=== PATIENT | male | born 1930 | race Caucasian/White ===

== ENCOUNTER → 2016-07-09 | Outpatient (CLI) | payer MEDICARE, BC ==
[~2016-07-09] MED LIST: ATOR10TA9 PO; CARV-39 PO; DONE5TAB7 PO; FAMO20TA7 PO; FINA5TAB4 PO; FLUT9.9S NS; GABA100C8 PO; HYDR-879 PO; LOSA50TA6 PO; METF500T4 PO; METH750T2 PO; TAMS0.4C2 PO; TIZA4CAP2 PO; muscle relaxer PO
== END | disposition home or self-care (01) ==
LOC: STAR 13:52
PROVIDERS: ATTEND Neurological Surgery
DX: Z01.818 Encounter for other preprocedural examination (principal); M51.36 Other intervertebral disc degeneration, lumbar region
CPT/HCPCS: 36415; 71020; 85610; 85730

== ENCOUNTER 2016-07-16 09:45 | Inpatient (IN) | payer MEDICARE, BC ==
[~2016-07-16] VITALS: Ht 175.3 cm; Wt 71.0 kg
[~2016-07-16 09:45] MED LIST changes: +BACITRACIN 50,000 UNIT ONE; +BUPIVACAINE/PF 0.5% ONE; +BUPIVACAINE/PF-EPI 0.25% 1:200K ONE; -METH750T2 PO; +THROMBIN 5,000 UNIT VIAL TP ONE; +VANCOMYCIN 1,000 MG ONE
[2016-07-16] MEDS ORDERED: LACTATED RINGERS 1,000 ML IV SCH (10:32)
[2016-07-16 10:33] VITALS: BP 220/92
[2016-07-16] MEDS ORDERED: FENTANYL PF 250 MCG/5ML ONE (10:37)
[2016-07-16] MEDS ORDERED: MIDAZOLAM 1 MG/ML, 2ML ONE (10:37)
[2016-07-16] MEDS ORDERED: METH750T2 PO (10:43)
[2016-07-16] MEDS ORDERED: LOSARTAN 50MG TABLET PO ONE (11:00)
[2016-07-16] MEDS ORDERED: CARVEDILOL 25 MG TABLET PO ONE (11:00)
[2016-07-16] MEDS ORDERED: ONDANSETRON 2MG/ML, 2ML ONE (12:27)
[2016-07-16] MEDS ORDERED: SUCCINYLCHOLINE 20 MG/ML, 10ML ONE (12:27)
[2016-07-16] MEDS ORDERED: DEXAMETHASONE 4 MG/ML, 1ML ONE (12:27)
[2016-07-16] MEDS ORDERED: ROCURONIUM 10 MG/ML ONE (12:27)
[2016-07-16] MEDS ORDERED: PROPOFOL 10 MG/ML, 20ML ONE (12:27)
[2016-07-16] MEDS ORDERED: CEFAZOLIN 1,000 MG ONE (12:27)
[2016-07-16] MEDS ORDERED: hydrALAzine 20 MG/ML, 1ML IV PRN (13:00)
[2016-07-16] MEDS ORDERED: OXYcodone 5 MG/5 ML ORAL.SOL UDC PO PRN (13:00)
[2016-07-16] MEDS ORDERED: ONDANSETRON 2MG/ML, 2ML IVPush PRN (13:00)
[2016-07-16] MEDS ORDERED: HYDROmorphone 1 MG/ML, 1ML IV PRN (13:00)
[2016-07-16] MEDS ORDERED: METOCLOPRAMIDE 5 MG/ML, 2ML IV PRN (13:00)
[2016-07-16] MEDS ORDERED: ACETAMINOPHEN 325 MG TABLET PO PRN (13:00)
[2016-07-16] MEDS: LABETALOL 5MG/ML, 20ML IV PRN ×7 (13:55→22:36)
[2016-07-16] MEDS ORDERED: ACETAMINOPHEN 650 MG/20.3 ML UDC ONE (14:10)
[2016-07-16] MEDS ORDERED: ACETAMINOPHEN 325 MG TABLET ONE (14:10)
[2016-07-16] MEDS ORDERED: OXYcodone 5 MG/5 ML ORAL.SOL UDC ONE (14:10)
[2016-07-16] MEDS ORDERED: FENTANYL PF 100 MCG/2ML ONE (14:10)
[2016-07-16] MEDS: FENTANYL PF 100 MCG/2ML IV PRN ×2 (14:15→15:24)
[2016-07-16] MEDS ORDERED: hydrALAzine 20 MG/ML, 1ML ONE (14:58)
[2016-07-16 16:05] VITALS: BP 141/67
[2016-07-16] MEDS ORDERED: DIPHENHYDRAMINE 50 MG CAPSULE PO PRN (16:30)
[2016-07-16] MEDS ORDERED: CYCLOBENZAPRINE 10 MG TABLET PO PRN (16:30)
[2016-07-16] MEDS ORDERED: MAGNESIUM HYDROXIDE 8%, 30ML UDC PO PRN (16:30)
[2016-07-16] MEDS ORDERED: OXYcodone/APAP 5/325MG TABLET PO PRN (16:30)
[2016-07-16] MEDS ORDERED: BISACODYL 10 MG SUPP PR PRN (16:30)
[2016-07-16] MEDS ORDERED: morphine SULFATE 10 MG/ML, 1ML IV PRN (16:30)
[2016-07-16] MEDS ORDERED: ONDANSETRON 2MG/ML, 2ML IV PRN (16:30)
[2016-07-16] MEDS ORDERED: TRAZODONE 50MG TABLET PO PRN (16:30)
[2016-07-16] MEDS ORDERED: PROMETHAZINE 25 MG/ML, 1ML IM PRN (16:30)
[2016-07-16] MEDS: NS + 20MEQ KCL 1,000 ML IV SCH (18:09)
[2016-07-16] MEDS: metFORMIN 500 MG TABLET PO SCH (18:09)
[2016-07-16] MEDS: CARVEDILOL 25 MG TABLET PO SCH (18:09)
[2016-07-16] MEDS: HYDROcodone/APAP 10/325 MG TABLET PO PRN (18:14)
[2016-07-16 19:56] VITALS: BP 144/74
[2016-07-16] MEDS ORDERED: DONEPEZIL 5 MG TABLET PO SCH (21:00)
[2016-07-16] MEDS ORDERED: ATORVASTATIN 10 MG TABLET PO SCH (21:00)
[2016-07-16] MEDS: CEFAZOLIN PMX 1GM/50ML 50 ML IVPB SCH (22:28)
[2016-07-16] MEDS: FAMOTIDINE 20 MG TABLET PO SCH (22:28)
[2016-07-16] MEDS: LOSARTAN 50MG TABLET PO SCH (22:29)
[2016-07-16] MEDS: INSULIN REGULAR 100 UNITS/ML, 3ML VIAL SQ-INSULIN SCH (23:05)
[2016-07-17 00:23] VITALS: BP 168/106
[2016-07-17] MEDS: HYDROcodone/APAP 10/325 MG TABLET PO PRN ×3 (00:50→14:16)
[2016-07-17 00:52] VITALS: BP 148/75
[2016-07-17] MEDS: NS + 20MEQ KCL 1,000 ML IV SCH ×2 (02:30→12:30)
[2016-07-17] MEDS: CEFAZOLIN PMX 1GM/50ML 50 ML IVPB SCH ×2 (04:46→11:39)
[2016-07-17] MEDS: CEPHALEXIN 500 MG CAPSULE PO SCH ×3 (04:52→15:27)
[2016-07-17 05:45] VITALS: BP 130/64
[2016-07-17] MEDS: CARVEDILOL 25 MG TABLET PO SCH (06:01)
[2016-07-17] MEDS: INSULIN REGULAR 100 UNITS/ML, 3ML VIAL SQ-INSULIN SCH ×2 (07:00→11:00)
[2016-07-17 07:58] VITALS: BP 144/66
[2016-07-17] MEDS ORDERED: TAMSULOSIN 0.4 MG CAP.ER.24H PO SCH (09:00)
[2016-07-17] MEDS ORDERED: SENNA/DOCUSATE TABLET PO SCH (09:00)
[2016-07-17] MEDS ORDERED: GABAPENTIN 100 MG CAPSULE PO SCH (09:00)
[2016-07-17] MEDS ORDERED: FINASTERIDE 5 MG TABLET PO SCH (09:00)
[2016-07-17] MEDS: FAMOTIDINE 20 MG TABLET PO SCH (09:29)
[2016-07-17] MEDS: metFORMIN 500 MG TABLET PO SCH (09:30)
[2016-07-17] MEDS: LOSARTAN 50MG TABLET PO SCH (09:30)
[2016-07-17 13:58] VITALS: BP 106/55
[2016-07-17] MEDS ORDERED: HYDR-3144 PO (15:55)
[2016-07-17] MEDS ORDERED: CEPH-368 PO (15:57)
== END 2016-07-17 16:15 | disposition home health service (06) | DRG 516 ==
LOC: OUT 09:45 → 4NOR 16:01 → OUT 16:12 → 4NOR 16:35 → DCLOUNGE 07-17 15:50
PROVIDERS: ADMIT Neurological Surgery; ATTEND Neurological Surgery
PROC: 01NB0ZZ Release Lumbar Nerve, Open Approach (ICD-10-PCS; principal; 2016-07-16 12:30)
DX: M48.06 Spinal stenosis, lumbar region (principal); K59.2 Neurogenic bowel, not elsewhere classified; M47.26 Other spondylosis with radiculopathy, lumbar region; I10 Essential (primary) hypertension; E11.65 Type 2 diabetes mellitus with hyperglycemia; I45.10 Unspecified right bundle-branch block; E78.2 Mixed hyperlipidemia; N31.9 Neuromuscular dysfunction of bladder, unspecified
CPT/HCPCS: 72100; 82962; C1729; J0690; J1100; J1815; J2250; J2405; J2704; J3010; J3370; J3480; J3490; J0330; J0360; J7120

== ENCOUNTER 2016-09-27 11:52 | Emergency (ER) | payer MEDICARE, BC ==
[~2016-09-27] VITALS: Ht 175.3 cm; Wt 72.0 kg
[~2016-09-27 11:52] MED LIST changes: -BACITRACIN 50,000 UNIT ONE; -BUPIVACAINE/PF 0.5% ONE; -BUPIVACAINE/PF-EPI 0.25% 1:200K ONE; +CEPH-368 PO; +GABA-826 PO; -GABA100C8 PO; +HYDR-3144 PO; +METH750T2 PO; -THROMBIN 5,000 UNIT VIAL TP ONE; -VANCOMYCIN 1,000 MG ONE
[2016-09-27 11:56] VITALS: BP 120/64
== END 2016-09-27 14:43 | disposition home or self-care (01) ==
LOC: ED 14:29
DX: Z00.00 Encounter for general adult medical examination without abnormal findings (principal); E11.9 Type 2 diabetes mellitus without complications; Z87.891 Personal history of nicotine dependence
CPT/HCPCS: 81001; 87086; 99284

== ENCOUNTER 2017-03-11 17:31 | Inpatient (IN) | payer MEDICARE, BC ==
[~2017-03-11] VITALS: Ht 175.3 cm; Wt 69.1 kg
[~2017-03-11 17:31] MED LIST changes: -HYDR-3144 PO; +HYDR-3245 PO
[2017-03-11] MEDS ORDERED: HYDROcodone/APAP 5/325 TABLET ONE (18:25)
[2017-03-11] MEDS ORDERED: HYDROcodone/APAP 5/325 TABLET PO ONE (18:30)
[2017-03-11 18:44] LABS: HEMATOCRIT 46.5 % (39.2-51.8); HEMOGLOBIN 15.6 g/dL (13.7-18.0); WHITE BLOOD COUNT 14.6 x10^3/uL (3.4-10)
[2017-03-11 18:55] LABS: PATH.CAST-FLAG NOT PRESENT; SPERM-FLAG NOT PRESENT; SRC-FLAG NOT PRESENT; XTAL-FLAG NOT PRESENT; YLC-FLAG NOT PRESENT
[2017-03-11 18:57] LABS: ASPARTATE AMINO TRANSFERASE 29 U/L (15-37); BLOOD UREA NITROGEN 20 mg/dL (7-18)
[2017-03-11] MEDS ORDERED: HYDROmorphone 1 MG/ML, 1ML ONE ×2 (20:45→21:56)
[2017-03-11] MEDS: HYDROmorphone 2 MG/ML, 1ML IVPush PRN ×2 (20:49→22:02)
[2017-03-11] MEDS ORDERED: DEXTROSE 4 GM TAB.CHEW PO PRN (21:00)
[2017-03-11] MEDS ORDERED: GLUCAGON 1 MG IM PRN (21:00)
[2017-03-11] MEDS ORDERED: ONDANSETRON 2MG/ML, 2ML IVPush PRN (21:00)
[2017-03-11] MEDS: DONEPEZIL 5 MG TABLET PO SCH ×2 (21:00→23:01)
[2017-03-11] MEDS: CARVEDILOL 25 MG TABLET PO SCH ×2 (21:00→23:02)
[2017-03-11] MEDS: ATORVASTATIN 10 MG TABLET PO SCH (21:00)
[2017-03-11] MEDS ORDERED: DEXTROSE 50%, 50ML SYRINGE IVPush PRN (21:00)
[2017-03-11] MEDS: FAMOTIDINE 20 MG TABLET PO SCH ×2 (21:00→23:02)
[2017-03-11] MEDS ORDERED: ACETAMINOPHEN 325 MG TABLET PO PRN (21:00)
[2017-03-11] MEDS: LACTULOSE 10 GM/15 ML UDC PO SCH ×2 (21:00→23:01)
[2017-03-11] MEDS: metFORMIN 500 MG TABLET PO SCH ×2 (21:00→23:01)
[2017-03-11 22:20] VITALS: BP 218/96
[2017-03-11] MEDS: hydrALAzine 20 MG/ML, 1ML IVPush PRN (23:00)
[2017-03-11] MEDS: morphine SULFATE 10 MG/ML, 1ML IVPush PRN (23:00)
[2017-03-11] MEDS: LOSARTAN 50MG TABLET PO SCH (23:02)
[2017-03-11] MEDS: SODIUM CHLORIDE FLUSH 10ML SYR IVF SCH (23:02)
[2017-03-11] MEDS: METHOCARBAMOL 750 MG TABLET PO PRN (23:02)
[2017-03-11] MEDS: SODIUM CHLORIDE 0.9% 1,000 ML IV SCH (23:03)
[2017-03-11] MEDS ORDERED: LABETALOL 5MG/ML, 20ML IVPush ONE (23:30)
[2017-03-11 23:36] VITALS: BP 174/84
[2017-03-12 00:38] VITALS: BP 149/65
[2017-03-12] MEDS: morphine SULFATE 10 MG/ML, 1ML IVPush PRN ×2 (03:41→12:35)
[2017-03-12 08:00] VITALS: BP 142/65
[2017-03-12] MEDS: CARVEDILOL 25 MG TABLET PO SCH ×2 (08:20→21:35)
[2017-03-12] MEDS: TAMSULOSIN 0.4 MG CAP.ER.24H PO SCH (08:20)
[2017-03-12] MEDS: metFORMIN 500 MG TABLET PO SCH ×2 (08:20→21:35)
[2017-03-12] MEDS: LACTULOSE 10 GM/15 ML UDC PO SCH ×2 (08:20→21:36)
[2017-03-12] MEDS: LOSARTAN 50MG TABLET PO SCH ×2 (08:20→21:35)
[2017-03-12] MEDS: FAMOTIDINE 20 MG TABLET PO SCH ×2 (08:21→21:35)
[2017-03-12] MEDS: GABAPENTIN 100 MG CAPSULE PO SCH (08:21)
[2017-03-12] MEDS: FINASTERIDE 5 MG TABLET PO SCH (08:21)
[2017-03-12] MEDS: SODIUM CHLORIDE FLUSH 10ML SYR IVF SCH ×2 (08:21→21:36)
[2017-03-12] MEDS: SODIUM CHLORIDE 0.9% 1,000 ML IV SCH (09:51)
[2017-03-12 14:00] VITALS: BP 166/67
[2017-03-12 19:10] VITALS: BP 166/74
[2017-03-12] MEDS: ATORVASTATIN 10 MG TABLET PO SCH (21:35)
[2017-03-12] MEDS: DONEPEZIL 5 MG TABLET PO SCH (21:36)
[2017-03-13 00:54] VITALS: BP 167/71
[2017-03-13] MEDS: METHOCARBAMOL 750 MG TABLET PO PRN ×2 (01:36→09:19)
[2017-03-13] MEDS: HYDROcodone/APAP 10/325 MG TABLET PO PRN ×2 (01:36→09:18)
[2017-03-13] MEDS: SODIUM CHLORIDE 0.9% 1,000 ML IV SCH ×2 (04:34→17:08)
[2017-03-13 05:25] LABS: HEMATOCRIT 40.6 % (39.2-51.8); WHITE BLOOD COUNT 11.3 x10^3/uL (3.4-10)
[2017-03-13 08:40] VITALS: BP 172/70
[2017-03-13] MEDS: TAMSULOSIN 0.4 MG CAP.ER.24H PO SCH (09:00)
[2017-03-13] MEDS: FINASTERIDE 5 MG TABLET PO SCH (09:00)
[2017-03-13] MEDS: FAMOTIDINE 20 MG TABLET PO SCH ×2 (09:18→21:04)
[2017-03-13] MEDS: LACTULOSE 10 GM/15 ML UDC PO SCH ×2 (09:19→21:05)
[2017-03-13] MEDS: LOSARTAN 50MG TABLET PO SCH ×2 (09:19→21:03)
[2017-03-13] MEDS: GABAPENTIN 100 MG CAPSULE PO SCH (09:19)
[2017-03-13] MEDS: CARVEDILOL 25 MG TABLET PO SCH ×2 (09:19→21:04)
[2017-03-13] MEDS: metFORMIN 500 MG TABLET PO SCH ×2 (09:19→21:03)
[2017-03-13] MEDS: SODIUM CHLORIDE FLUSH 10ML SYR IVF SCH ×2 (09:20→21:02)
[2017-03-13 13:35] VITALS: BP 124/63
[2017-03-13 18:56] VITALS: BP 111/62
[2017-03-13] MEDS: ATORVASTATIN 10 MG TABLET PO SCH (21:04)
[2017-03-13] MEDS: DONEPEZIL 5 MG TABLET PO SCH (21:04)
[2017-03-14 01:59] VITALS: BP 199/73
[2017-03-14] MEDS: hydrALAzine 20 MG/ML, 1ML IVPush PRN (02:10)
[2017-03-14 03:03] VITALS: BP 154/71
[2017-03-14] MEDS: SODIUM CHLORIDE 0.9% 1,000 ML IV SCH (05:58)
[2017-03-14 07:11] VITALS: BP 168/68
[2017-03-14] MEDS: TAMSULOSIN 0.4 MG CAP.ER.24H PO SCH (08:47)
[2017-03-14] MEDS: LOSARTAN 50MG TABLET PO SCH ×2 (08:47→21:39)
[2017-03-14] MEDS: LACTULOSE 10 GM/15 ML UDC PO SCH ×2 (08:47→21:40)
[2017-03-14] MEDS: metFORMIN 500 MG TABLET PO SCH ×2 (08:47→21:39)
[2017-03-14] MEDS: FINASTERIDE 5 MG TABLET PO SCH (08:48)
[2017-03-14] MEDS: FAMOTIDINE 20 MG TABLET PO SCH ×2 (08:48→21:39)
[2017-03-14] MEDS: CARVEDILOL 25 MG TABLET PO SCH ×2 (08:48→21:40)
[2017-03-14] MEDS: GABAPENTIN 100 MG CAPSULE PO SCH (08:48)
[2017-03-14] MEDS: AMLODIPINE 5 MG TABLET PO SCH (15:02)
[2017-03-14] MEDS: SODIUM CHLORIDE FLUSH 10ML SYR IVF SCH ×2 (15:02→22:09)
[2017-03-14 15:44] VITALS: BP 132/73
[2017-03-14 19:58] VITALS: BP 179/77
[2017-03-14] MEDS: ATORVASTATIN 10 MG TABLET PO SCH (21:39)
[2017-03-14] MEDS: DONEPEZIL 5 MG TABLET PO SCH (21:40)
[2017-03-14 23:04] VITALS: BP 154/72
[2017-03-15] VITALS (7 sets, daily range): BP systolic 116–183; BP diastolic 60–86
[2017-03-15] MEDS: hydrALAzine 20 MG/ML, 1ML IVPush PRN (01:42)
[2017-03-15] MEDS: TAMSULOSIN 0.4 MG CAP.ER.24H PO SCH (07:57)
[2017-03-15] MEDS: FINASTERIDE 5 MG TABLET PO SCH (07:58)
[2017-03-15] MEDS: GABAPENTIN 100 MG CAPSULE PO SCH (08:11)
[2017-03-15] MEDS: metFORMIN 500 MG TABLET PO SCH ×2 (08:11→23:05)
[2017-03-15] MEDS: AMLODIPINE 5 MG TABLET PO SCH (08:12)
[2017-03-15] MEDS: LACTULOSE 10 GM/15 ML UDC PO SCH ×2 (08:13→23:06)
[2017-03-15] MEDS: LOSARTAN 50MG TABLET PO SCH ×2 (08:13→23:05)
[2017-03-15] MEDS: CARVEDILOL 25 MG TABLET PO SCH ×2 (08:13→23:06)
[2017-03-15] MEDS: morphine SULFATE 10 MG/ML, 1ML IVPush PRN ×2 (08:13→23:06)
[2017-03-15] MEDS: FAMOTIDINE 20 MG TABLET PO SCH ×2 (08:13→23:05)
[2017-03-15] MEDS: SODIUM CHLORIDE FLUSH 10ML SYR IVF SCH ×2 (08:21→23:06)
[2017-03-15] MEDS: ATORVASTATIN 10 MG TABLET PO SCH (21:00)
[2017-03-15] MEDS: METHOCARBAMOL 750 MG TABLET PO PRN (23:04)
[2017-03-15] MEDS: DONEPEZIL 5 MG TABLET PO SCH (23:05)
[2017-03-16 00:57] VITALS: BP 115/58
[2017-03-16 06:40] VITALS: BP 174/76
[2017-03-16] MEDS ORDERED: DONE5TAB52 PO (07:02)
[2017-03-16] MEDS: FINASTERIDE 5 MG TABLET PO SCH (09:00)
[2017-03-16] MEDS: TAMSULOSIN 0.4 MG CAP.ER.24H PO SCH (09:50)
[2017-03-16] MEDS: FAMOTIDINE 20 MG TABLET PO SCH (09:50)
[2017-03-16] MEDS: metFORMIN 500 MG TABLET PO SCH (09:50)
[2017-03-16] MEDS: AMLODIPINE 5 MG TABLET PO SCH (09:50)
[2017-03-16] MEDS: GABAPENTIN 100 MG CAPSULE PO SCH (09:50)
[2017-03-16] MEDS: LACTULOSE 10 GM/15 ML UDC PO SCH (09:51)
[2017-03-16] MEDS: CARVEDILOL 25 MG TABLET PO SCH (09:51)
[2017-03-16] MEDS: LOSARTAN 50MG TABLET PO SCH (09:51)
[2017-03-16] MEDS: SODIUM CHLORIDE FLUSH 10ML SYR IVF SCH (09:52)
[2017-03-16 12:55] VITALS: BP 96/55
[2017-03-16 13:25] VITALS: BP 108/66
[2017-03-16 13:55] VITALS: BP 111/70
== END 2017-03-16 16:04 | DRG 552 ==
LOC: ED 20:18 → SUATTDRO 20:28 → EDIP 20:31 → 3NE 22:09
PROVIDERS: ADMIT Hospitalist; ATTEND Hospitalist
DX: S12.500A Unspecified displaced fracture of sixth cervical vertebra, initial encounter for closed fracture (principal); E11.9 Type 2 diabetes mellitus without complications; G30.9 Alzheimer's disease, unspecified; R13.10 Dysphagia, unspecified; F02.80 Dementia in other diseases classified elsewhere, unspecified severity, without behavioral disturbance, psychotic disturbance, mood disturbance, and anxiety; W01.0XXA Fall on same level from slipping, tripping and stumbling without subsequent striking against object, initial encounter; E78.5 Hyperlipidemia, unspecified; G89.11 Acute pain due to trauma; I10 Essential (primary) hypertension; K21.9 Gastro-esophageal reflux disease without esophagitis; N40.0 Benign prostatic hyperplasia without lower urinary tract symptoms; Y92.009 Unspecified place in unspecified non-institutional (private) residence as the place of occurrence of the external cause; Z87.891 Personal history of nicotine dependence; Y93.89 Activity, other specified
CPT/HCPCS: 36415; 70450; 71010; 72125; 74230; 80053; 81001; 82962; 85025; 93005; 96374; 96376; J1170; J0360; J2270; J7030

== ENCOUNTER → 2017-04-14 | Outpatient (CLI) | payer MEDICARE, BC ==
[~2017-04-14] MED LIST changes: +DONE5TAB52 PO
== END | disposition home or self-care (01) ==
LOC: RAD 16:55
PROVIDERS: ATTEND Neurological Surgery
DX: S12.400D Unspecified displaced fracture of fifth cervical vertebra, subsequent encounter for fracture with routine healing (principal); S12.500D Unspecified displaced fracture of sixth cervical vertebra, subsequent encounter for fracture with routine healing; M48.02 Spinal stenosis, cervical region; M47.892 Other spondylosis, cervical region; M50.21 Other cervical disc displacement, high cervical region; X58.XXXD Exposure to other specified factors, subsequent encounter
CPT/HCPCS: 72125; 72141